=== PATIENT | female | born 1980 | race Caucasian/White ===

== ENCOUNTER 2017-12-15 20:49 | Emergency (ER) | payer OTHER ==
[~2017-12-15] VITALS: Ht 160 cm; Wt 70.3 kg
[~2017-12-15 20:49] MED LIST: BIRTH CONTROL1 EACH PO; CIPRO500 MG PO; DOXYCYCLINE MO100 MG PO; MOTRIN800 MG PO
[2017-12-15] MEDS ORDERED: OMNICEF300 MG PO (22:11)
== END 2017-12-15 22:16 | disposition home or self-care (01) ==
LOC: ED 20:49
DX: H65.93 Unspecified nonsuppurative otitis media, bilateral (principal); Z79.899 Other long term (current) drug therapy; Z88.0 Allergy status to penicillin

== ENCOUNTER → 2019-06-06 | Outpatient (CLI) | payer OTHER ==
[~2019-06-06] MED LIST changes: +OMNICEF300 MG PO
== END | disposition home or self-care (01) ==
LOC: CARD 09:14
DX: R01.1 Cardiac murmur, unspecified (principal)

== ENCOUNTER → 2019-08-09 | Outpatient (CLI) | payer BC ==
[2019-08-09 10:00] LABS: HEMATOCRIT 45.2 % (37.0-47.0); HEMOGLOBIN 14.9 g/dl (12.0-16.0); MEAN CELL VOLUME 92.8 fl (81.0-99.0); MEAN CORPUSCULAR HGB 30.6 pg (27.0-31.0); MEAN PLATELET VOLUME 9.4 fl (9.6-12.3); RED BLOOD COUNT 4.87 10*6/uL (4.10-5.10); RED CELL DISTRI WIDTH 12.6 % (0-14.5); WHITE BLOOD COUNT 5.7 10*3/uL (4.8-10.8)
[2019-08-09 10:27] LABS: BUN 8 mg/dl (7-24); CHLORIDE 109 mmol/L (98-107); CHOLESTEROL 191 mg/dL (<200); CREATININE 1.06 mg/dL (0.55-1.02); POTASSIUM 3.9 mmol/L (3.5-5.1); SGOT/AST 14 IU/L (3-35); SGPT/ALT 20 U/L (12-78); SODIUM 139 mmol/L (136-145); TOTAL PROTEIN 7.5 gm/dL (6.4-8.2); TRIGLYCERIDES 79 mg/dl (<150); VLDL CHOLESTEROL 16 mg/dL (6-40)
[2019-08-09 10:34] LABS: ALKALINE PHOSPHATASE 72 U/L (45-117); FREE T4 0.99 ng/dl (0.76-1.46); HDL CHOLESTEROL 52 mg/dl (40-60); LDL CHOLESTEROL 123 mg/dL (9-159)
== END | disposition home or self-care (01) ==
LOC: LAB 09:19
PROVIDERS: Family Medicine
DX: G47.00 Insomnia, unspecified (principal); L65.9 Nonscarring hair loss, unspecified; R53.83 Other fatigue; R42 Dizziness and giddiness

== ENCOUNTER → 2019-08-19 | Outpatient (CLI) | payer BC | END | disposition home or self-care (01) | LOC: MRI 08:56 | DX: G44.029 Chronic cluster headache, not intractable (principal); R53.1 Weakness; R42 Dizziness and giddiness ==

== ENCOUNTER → 2020-04-05 | Outpatient (CLI) | payer BC | LOC: MAMMO 08:12 | PROVIDERS: ATTEND Nurse Practitioner Women's Health | DX: Z12.31 Encounter for screening mammogram for malignant neoplasm of breast (principal) ==

== ENCOUNTER → 2020-04-26 | Outpatient (CLI) | payer BC | END | disposition home or self-care (01) | LOC: MAMMO 04-18 10:00 → US 04-18 11:30 → MAMMO 04-19 10:00 → US 04-19 11:30 → MAMMO 07:47 | PROVIDERS: ATTEND Nurse Practitioner Women's Health | DX: N60.01 Solitary cyst of right breast (principal); R92.8 Other abnormal and inconclusive findings on diagnostic imaging of breast; Z80.3 Family history of malignant neoplasm of breast ==

== ENCOUNTER → 2022-06-17 | Outpatient (CLI) | payer BC | END | disposition home or self-care (01) | LOC: MAMMO 02:45 | PROVIDERS: ATTEND Nurse Practitioner Women's Health | DX: Z12.31 Encounter for screening mammogram for malignant neoplasm of breast (principal) ==

== ENCOUNTER → 2023-08-05 | Outpatient (CLI) | payer OTHER | END | disposition home or self-care (01) | LOC: MAMMO 07-29 11:00 | PROVIDERS: ATTEND Nurse Practitioner Women's Health | DX: Z12.31 Encounter for screening mammogram for malignant neoplasm of breast (principal) ==

== ENCOUNTER → 2024-08-22 | Outpatient (CLI) | payer OTHER | END | disposition home or self-care (01) | LOC: MAMMO 12:53 | PROVIDERS: ATTEND Nurse Practitioner Women's Health | DX: Z12.31 Encounter for screening mammogram for malignant neoplasm of breast (principal); R92.333 Mammographic heterogeneous density, bilateral breasts; R92.323 Mammographic fibroglandular density, bilateral breasts ==